=== PATIENT | male | born 1955 | race Caucasian/White ===

== ENCOUNTER 2017-08-19 14:57 | Emergency (ER) | payer OTHER ==
[~2017-08-19] VITALS: Ht 182.8 cm; Wt 74.4 kg
[2017-08-19] MEDS ORDERED: LISINOPRIL5 MG PO (15:15)
[2017-08-19] MEDS ORDERED: METOPROLOL25 MG PO (15:16)
[2017-08-19] MEDS ORDERED: OMEPRAZOLE MAGN20 MG PO (15:17)
[2017-08-19 15:18] LABS: BASO % 0.6 % (0.0-1.0); EOS # 0.2 10*3/uL (0.0-0.4); EOS % 3.6 % (1.0-4.0); HEMATOCRIT 39.2 % (42.0-52.0); HEMOGLOBIN 12.4 g/dl (14.0-18.0); LYMPH % 15.9 % (27.0-41.0); MEAN CELL VOLUME 98.5 fl (80.0-94.0); MEAN CORPUSCULAR HGB 31.2 pg (27.0-31.0); MEAN CORPUSCULAR HGB CONC 31.6 g/dl (33.0-37.0); MEAN PLATELET VOLUME 8.4 fl (9.6-12.3); MONO # 0.5 10*3/uL (0.1-1.0); MONO % 7.5 % (3.0-9.0); NEUT # 4.6 10*3/uL (2.3-7.9); NEUT % 71.9 % (47.0-73.0); PLATELET COUNT AUTOMATED 235 10*3/uL (130-400); RED BLOOD COUNT 3.98 10*6/uL (4.50-5.90); RED CELL DISTRI WIDTH 15.2 % (0-14.5); WHITE BLOOD COUNT 6.4 10*3/uL (4.8-10.8)
[2017-08-19] MEDS ORDERED: MELATONIN3 MG PO (15:18)
[2017-08-19] MEDS ORDERED: ASPIR 8181 MG PO (15:19)
[2017-08-19] MEDS ORDERED: NITROSTAT0.4 MG PO (15:20)
[2017-08-19 15:32] LABS: ALBUMIN 3.2 gm/dl (3.1-4.5); ALKALINE PHOSPHATASE 80 U/L (45-117); BUN 14 mg/dl (7-24); CHLORIDE 103 mmol/L (98-107); CREATININE 0.81 mg/dL (0.70-1.30); POTASSIUM 4.2 mmol/L (3.5-5.1); SGOT/AST 20 IU/L (3-35); SGPT/ALT 30 U/L (12-78); SODIUM 137 mmol/L (136-145); TOTAL PROTEIN 7.2 gm/dL (6.4-8.2)
[2017-08-19] MEDS ORDERED: OXYCODONE HCL5 M1 PO (17:06)
== END 2017-08-19 17:03 | disposition home or self-care (01) ==
LOC: ED 14:57
PROVIDERS: Student in an Organized Health Care Education/Training Program
DX: R10.9 Unspecified abdominal pain (principal); F17.200 Nicotine dependence, unspecified, uncomplicated; Z88.8 Allergy status to other drugs, medicaments and biological substances; Z79.899 Other long term (current) drug therapy; Z79.82 Long term (current) use of aspirin